=== PATIENT | male | born 1995 | race Caucasian/White ===

== ENCOUNTER 2017-03-30 03:41 | Emergency (ER) | payer BC ==
--- NOTE | 2017-03-30 10:45 | RAD ---
RIGHT ANKLE 3 VIEWS: DATE: 03/30/17. FINDINGS: Mild lateral swelling was seen. No fracture was detected. The ankle joint itself appears normal. IMPRESSION: Mild swelling. POS: HOME
== END 2017-03-30 04:16 | disposition home or self-care (01) ==
LOC: BURERS 03:41
DX: S93.401A Sprain of unspecified ligament of right ankle, initial encounter (principal); F17.210 Nicotine dependence, cigarettes, uncomplicated; X50.1XXA Overexertion from prolonged static or awkward postures, initial encounter

== ENCOUNTER 2019-04-06 00:06 | Emergency (ER) | payer BC ==
[2019-04-06] MEDS ORDERED: Tetracaine 0.5% OPHTH SOLN/PF 4 ML BOT ONE (00:22)
[2019-04-06] MEDS ORDERED: Fluorescein Opthalmic Strip ONE (00:22)
[2019-04-06] MEDS ORDERED: Cyclopentolate 1% Opth Drop 2 ML BOT ONE (00:28)
== END 2019-04-06 00:49 | disposition home or self-care (01) ==
LOC: BURERS 00:06
DX: H16.133 Photokeratitis, bilateral (principal); F17.210 Nicotine dependence, cigarettes, uncomplicated
CPT/HCPCS: 99283

== ENCOUNTER 2020-06-25 02:46 | Emergency (ER) | payer BC | END 2020-06-25 03:30 | disposition left against medical advice (07) | LOC: BURERS 02:46 | DX: S01.81XA Laceration without foreign body of other part of head, initial encounter (principal); F10.129 Alcohol abuse with intoxication, unspecified; W18.30XA Fall on same level, unspecified, initial encounter; F17.210 Nicotine dependence, cigarettes, uncomplicated | CPT/HCPCS: 99283 ==

== ENCOUNTER 2021-06-20 09:51 | Emergency (ER) | payer BC, SELFPAY ==
[2021-06-21 09:32] LABS: SARS-CoV-2 PCR by NAA DETECTED (NotDetected)
== END 2021-06-20 10:14 | disposition home or self-care (01) ==
LOC: BURERS 09:51
DX: U07.1 COVID-19 (principal); F17.210 Nicotine dependence, cigarettes, uncomplicated
CPT/HCPCS: 99283; U0003; U0005

== ENCOUNTER 2022-04-28 13:42 | Emergency (ER) | payer BC ==
[2022-04-28] MEDS ORDERED: Tetracaine 0.5% PF 4 ML BOT ONE (14:08)
[2022-04-28] MEDS ORDERED: Boostrix 0.5 ML (Tdap) VIAL (>/=7 yrs of age) ONE (14:18)
== END 2022-04-28 14:37 | disposition home or self-care (01) ==
LOC: BURERS 13:42
DX: S05.01XA Injury of conjunctiva and corneal abrasion without foreign body, right eye, initial encounter (principal); F17.210 Nicotine dependence, cigarettes, uncomplicated; X58.XXXA Exposure to other specified factors, initial encounter
CPT/HCPCS: 90471; 90715

== ENCOUNTER 2022-06-10 07:01 | Emergency (ER) | payer BC, SELFPAY ==
[2022-06-10] MEDS ORDERED: Ketorolac Tromethamine 60 MG/2 ML VIAL ONE (07:25)
== END 2022-06-10 07:31 | disposition home or self-care (01) ==
LOC: BURERS 07:01
DX: M79.671 Pain in right foot (principal); I10 Essential (primary) hypertension; F17.210 Nicotine dependence, cigarettes, uncomplicated
CPT/HCPCS: 96372; J1885